=== PATIENT | male | born 1965 | race Caucasian/White ===

== ENCOUNTER → 2016-06-10 | Outpatient (CLI) | payer OTHER ==
--- NOTE | 2016-06-11 09:08 | MR ---
MRI Left Shoulder Without Contrast History: Left shoulder pain. Scapular body fracture. Evaluate for rotator cuff tear. ICD-10 code M25. 512. Technique: Fat-suppressed fast T2-weighted images were acquired using corrected coronal, corrected s agittal, and axial projections. T1-weighted corrected coronal images were also obtained. Findings: General: There is a fracture in the mid body of the scapula. The medial scapular wing is displaced po steriorly 1 cm in relation to the neck of the glenoid and there is some mild overlap. There is adjace nt soft tissue edema. There is mass effect into the medial teres minor muscle from the posterior disp lacement of the fracture. Acromioclavicular joint region: Mild degenerative change is seen in the acromioclavicular joint. Ther e is an anterior curve and a lateral downslope to the acromion. There is a lateral subacromial spur. There is a mild subacromial fluid collection. Rotator cuff: There is abnormal signal intensity and attenuation in the distal supraspinatus tendon. There is a 4 mm near full-thickness versus full-thickness tear at the distal anterior insertion of th e supraspinatus tendon. There is no evidence of edema and this is more suggestive of a chronic tendin opathy and partial tear. Infraspinatus tendon is intact. There is edema in the teres minor muscle and inferior infraspinatus muscle indicating an acute strain or contusion. Biceps tendon: Long head biceps tendon is seen within the bicipital groove. Intraarticular long head biceps tendon is unremarkable. Biceps anchor is intact. Glenohumeral joint: There is fraying and probable small smooth partial tear in the superior labrum at the biceps anchor versus a large normal variant superior labral recess. No other findings for labral tear. No evidence for a glenohumeral joint effusion. No evidence for a cartilage defect of the gleno humeral joint. Impression: 1. Displaced mid body scapular fracture. The posterior displacement is causing mass effect in the ter es minor muscle with strain and contusion of the teres minor muscle. There is also mild strain in the inferior muscle of the infraspinatus. 2. Chronic tendinopathy and partial tear of the distal supraspinatus tendon. There may be a small 4 m m full-thickness or near full-thickness tear at the distal anterior insertion. Mild subacromial bursi tis. 3. Large normal variant superior labral recess versus partial tear superior labrum. 4. Mild degenerative change acromioclavicular joint. Anterior curve and lateral downslope to the acro mion with a lateral subacromial spur.
== END ==
LOC: FIMAGING 16:27
PROVIDERS: ATTEND Orthopaedic Surgery Hand Surgery
DX: S42.112A Displaced fracture of body of scapula, left shoulder, initial encounter for closed fracture (principal); S40.012A Contusion of left shoulder, initial encounter; S46.812A Strain of other muscles, fascia and tendons at shoulder and upper arm level, left arm, initial encounter; M67.912 Unspecified disorder of synovium and tendon, left shoulder

== ENCOUNTER → 2016-10-08 | Outpatient (CLI) | payer OTHER | LOC: FIMAGING 09:07 | PROVIDERS: ATTEND Physician Assistant | DX: S42.112A Displaced fracture of body of scapula, left shoulder, initial encounter for closed fracture (principal); M75.52 Bursitis of left shoulder; M19.012 Primary osteoarthritis, left shoulder ==